=== PATIENT | female | born 1945 | race Asian ===

== ENCOUNTER → 2017-09-06 | Outpatient (CLI) | payer MEDICARE, MEDICAID ==
[~2017-09-06] MED LIST: CARV6.252 PO; FERR324T13 PO; GLIM4TAB2 PO; LEVO125C2 PO; LOSA50TA6 PO; METF-163 PO; OMEP-110 PO; PIOG45TA3 PO; SIMV10TA3 PO; VIT D2 PO
== END | disposition home or self-care (01) ==
LOC: CVU 14:55
PROVIDERS: ATTEND Surgery
DX: M25.461 Effusion, right knee (principal); M79.89 Other specified soft tissue disorders
CPT/HCPCS: 93971

== ENCOUNTER 2020-07-30 15:51 | Emergency (ER) | payer MEDICARE, MEDICAID ==
[~2020-07-30] VITALS: Ht 154.9 cm; Wt 71.1 kg
[~2020-07-30 15:51] MED LIST changes: +ALBU18HF INH; +ASPI-515 PO; +ATOR-2 PO; +CHOL2000 PO; +CHOL500050 PO; +EMPA25TA PO; +FLUTICASONE PROP NAS; +GLIM2TAB7 PO; -GLIM4TAB2 PO; +GLIM4TAB8 PO; +ISOS30TA8 PO; +LINA5TAB PO; +LOSA50TA14 PO; -LOSA50TA6 PO; +MELO15TA24 PO; +METF500T17 PO; +MULT-758 PO; +PANT40TA6 PO; -PIOG45TA3 PO; +PIOG45TA64 PO; +ROSU20TA2 PO; +SIMV10TA18 PO; -SIMV10TA3 PO; +TICA90TA PO
--- NOTE | 2020-07-30 16:15 | NUR ---
First contact with pt. Pt c/o continuous heavy midline CP x2 weeks. Pt reports pain is continuous, no change with palpation or deep inspiration. Pt placed in gown, positioned for comfort in bed with warm blanket. Continuous oxygen, heart, and BP monitors applied, all safety measures observed.
[2020-07-30] MEDS ORDERED: ASPIRIN 81 MG TABLET CHEW ONE ×2 (17:25→17:27)
[2020-07-30] MEDS ORDERED: ASPIRIN 81 MG TABLET CHEW PO ONE (17:30)
[2020-07-30] MEDS ORDERED: SODIUM CHLORIDE FLUSH 10ML SYR IVF ONE (17:30)
[2020-07-30 17:34] LABS: BASOPHILS % (AUTO) 1 % (0-1); EOSINOPHILS % (AUTO) 2 % (1-7); LYMPHOCYTES % (AUTO) 25 % (22-44); MEAN CORPUSCULAR HEMOGLOBIN 25.7 pg (27.0-34.8); MEAN CORPUSCULAR HGB CONC 32.4 g/dL (32.4-35.8); MEAN PLATELET VOLUME 8.6 fL (7.4-10.4); MONOCYTES % (AUTO) 7 % (2-9); NEUTROPHILS % (AUTO) 66 % (42-75); PLATELET COUNT 263 x10^3/uL (130-400); RED CELL DISTRIBUTION WIDTH 14.9 % (9.6-15.2)
[2020-07-30 17:35] LABS: MD NO
--- NOTE | 2020-07-30 17:36 | NUR ---
Pt medicated per MAR and given water per request, ok per MD. Pt denies other needs.
[2020-07-30 17:46] LABS: ALANINE AMINOTRANSFERASE 23 U/L (12-78); ANION GAP 6 mmol/L (5-15); CALCIUM 9.5 mg/dL (8.5-10.1); CHLORIDE 105 mmol/L (98-107); CREATININE 0.74 mg/dL (0.55-1.02)
[2020-07-30 17:51] LABS: ALKALINE PHOSPHATASE 69 U/L (45-117); BILIRUBIN,TOTAL 0.3 mg/dL (0.2-1.0); TOTAL PROTEIN 7.7 g/dL (6.4-8.2); TROPONIN I < 0.015 ng/mL (0.000-0.045)
--- NOTE | 2020-07-30 17:53 | NUR ---
Pt ambulatory to bathroom with steady gait, refuses assistance from this RN.
--- NOTE | 2020-07-30 17:59 | NUR ---
Pt back to bed, denies other needs.
--- NOTE | 2020-07-30 18:43 | NUR ---
Pt resting in bed, NADN. Awaiting recheck by ERP.
[2020-07-30 18:44] VITALS: BP 150/68
--- NOTE | 2020-07-30 18:44 | NUR ---
Dr. Holland at bedside to discuss POC with pt.
[2020-07-30] MEDS ORDERED: NAPROXEN 500 MG TABLET ONE (19:26)
[2020-07-30] MEDS ORDERED: NAPROXEN 500 MG TABLET PO ONE (19:30)
== END 2020-07-30 19:35 | disposition home or self-care (01) ==
LOC: ED 16:41
DX: R07.89 Other chest pain (principal); R94.31 Abnormal electrocardiogram [ECG] [EKG]; I10 Essential (primary) hypertension; E11.9 Type 2 diabetes mellitus without complications; Z90.89 Acquired absence of other organs; Z86.39 Personal history of other endocrine, nutritional and metabolic disease
CPT/HCPCS: 36415; 71045; 80053; 84484; 85025; 93005; 99285